=== PATIENT | female | born 1995 | race African-American/Black ===

== ENCOUNTER 2022-09-13 13:53 | Observation (INO) | payer OTHER ==
[2022-09-13] VITALS (9 sets, daily range): BP systolic 104–120; BP diastolic 61–91; PULSE 78–95; TEMP 98.6–98.7
[~2022-09-13] VITALS: Ht 170.2 cm; Wt 63.9 kg
[2022-09-13] MEDS ORDERED: ZOLOFT 50MG50 MG PO (15:07)
[2022-09-13] MEDS ORDERED: NEXPLANON68 MG ID (15:07)
--- NOTE | 2022-09-13 16:15 | NUR ---
The patient was taken back to the operating room via cart at this time. The patient's visitors were sent back to the waiting room to receive updates. The patient's belongings were taken over to the revoery oom and will be transferred with the patient to the 3rd floor post operatively.
[2022-09-13] MEDS ORDERED: BACTRIM DS 8001 TAB PO (16:51)
[2022-09-13] MEDS ORDERED: NORCO 325 MG-51 TAB PO (16:51)
[2022-09-13] MEDS ORDERED: FLOMAX 0.40.4 MG/CAP PO (16:51)
--- NOTE | 2022-09-13 18:39 | NUR ---
Patient arrived to the unit via bed from pacu. Patient drowsy, easily to arouse. VSS. Lungs, CTA. Bowel sounds active. Patient reports of mild pain at LLQ. Patient oriented to room. ICE chips offered and patient is tolerating well. Family at the bedside.
--- NOTE | 2022-09-13 19:22 | NUR ---
Patient sitting up in bed eating dinner. Patien denies pain and no episode of nausea vomiting. Family at the bedside.
--- NOTE | 2022-09-13 22:30 | NUR ---
Patient A/Ox4, VSS, NAD, tolerated her supper, able to urinate, got a discharge order from Dr. Nelson, discharge instructions given, questions answered, home with friends, escorted by staff.
== END 2022-09-13 22:19 | disposition home or self-care (01) ==
LOC: INPTSU 13:53 → SDCO 14:15 → EDSTATUS 14:15 → EDSEX 14:15 → SURG 17:00 → SDCO 17:00 → SURG 18:23
PROVIDERS: ADMIT Urology
DX: N13.0 Hydronephrosis with ureteropelvic junction obstruction (principal)
CPT/HCPCS: C2617; G0378; J1100; J1885; J2270; J2370; J2405; J2704; J3010; J7030; Q9967

== ENCOUNTER → 2022-12-09 | Outpatient (CLI) | payer OTHER ==
[~2022-12-09] MED LIST: BACTRIM DS 8001 TAB PO; FLOMAX 0.40.4 MG/CAP PO; NEXPLANON68 MG ID; NORCO 325 MG-51 TAB PO; ZOLOFT 50MG50 MG PO
== END ==
LOC: COL.RAD 11:49
DX: N13.30 Unspecified hydronephrosis (principal)
CPT/HCPCS: A9562; J1940